=== PATIENT | male | born 1970 | race Caucasian/White ===

== ENCOUNTER 2021-01-10 17:06 | Emergency (ER) | payer OTHER ==
[~2021-01-10] VITALS: Ht 180.3 cm; Wt 254.0 kg
[2021-01-10 17:09] VITALS: BP 189/82
[2021-01-10] MEDS ORDERED: methylPREDNISolone SS 125 MG/2 ML VIAL IVP ONE (17:10)
--- NOTE | 2021-01-10 17:20 | NUR ---
50 Y/O M BIBA FROM HOME IS C/O SOB. PT IS A&O X4, IS CURRENTLY ON A FM 8L, NEBULIZER TX. PT HAS A MED HX OF ASTHMA, COPD, PE IN 2007. MED ALLERGY TO MORPHINE. NO PAIN AT THIS MOMENT. NO N&V. DENIES CONTACT WITH ANYONE WHO IS POSITIVE FOR COVID. PT TAKING DEEP BREATHS, SLOW BREATHING, AUDITORY WHEEZING DURING INSPIRATION AND EXPIRATION.
[2021-01-10 17:35] LABS: BASOPHILS % (AUTO) 0.5 % (0.0-2.0); EOSINOPHILS # (AUTO) 0.4 K/uL (0-0.4); EOSINOPHILS % (AUTO) 4.8 % (0.0-4.0); HEMATOCRIT 44.2 % (36-52); HEMOGLOBIN 14.7 g/dL (12.0-18.0); LYMPHOCYTES # (AUTO) 1.6 K/uL (2.0-11.5); LYMPHOCYTES % (AUTO) 18.4 % (20.5-51.1); MEAN CORPUSCULAR HEMOGLOBIN 30 pg (27-31); MEAN CORPUSCULAR HGB CONC 33 g/dL (33-37); MONOCYTES # (AUTO) 0.6 K/uL (0.8-1.0); MONOCYTES % (AUTO) 6.9 % (1.7-9.3); NEUTROPHILS # (AUTO) 6.1 K/uL (1.8-7.7); NEUTROPHILS % (AUTO) 69.4 % (42.2-75.2); PLATELET COUNT (AUTO) 243 K/uL (140-450); RED BLOOD CELL COUNT(AUTO) 4.91 MIL/uL (4.20-6.10); RED CELL DISTRIBUTION WIDTH 13.4 % (11.6-13.7); WHITE BLOOD COUNT (AUTO) 8.8 K/uL (4.8-10.8)
--- NOTE | 2021-01-10 17:50 | NUR ---
X RAY IS CURRENTLY AT BEDSIDE
[2021-01-10 17:59] LABS: PROTHROMBIN TIME 10.4 secs (10.8-13.4)
[2021-01-10 18:02] LABS: ALBUMIN 3.5 g/dL (3.4-5.0); ANION GAP 11.2 (8-16); CARBON DIOXIDE 29.8 mmol/L (21-32); CREATININE 1.2 mg/dL (0.6-1.3); TOTAL BILIRUBIN 0.5 mg/dL (0.0-1.0)
--- NOTE | 2021-01-10 19:17 | NUR ---
REPORT RECEIVED FROM LEONCIO MARIEE. CONTINUATION OF CARE.
--- NOTE | 2021-01-10 19:19 | NUR ---
ERMD AT BEDSIDE.
[2021-01-10 19:59] VITALS: BP 142/59
== END 2021-01-10 20:10 | disposition home or self-care (01) ==
LOC: MED 17:06
DX: R06.02 Shortness of breath (principal); I10 Essential (primary) hypertension; F12.90 Cannabis use, unspecified, uncomplicated; Z98.890 Other specified postprocedural states; Z86.718 Personal history of other venous thrombosis and embolism
CPT/HCPCS: 36415; 71045; 80053; 83880; 84484; 85025; 85379; 85610; 85730; 87426; 93005; 96374; 99285; J2930